=== PATIENT | female | born 1995 | race Caucasian/White ===

== ENCOUNTER → 2020-10-14 09:41 | Outpatient (BNVA) | payer MEDICAID, SELFPAY | PROVIDERS: Visit Provider Obstetrics & Gynecology | DX: O26.899 Other specified pregnancy related conditions, unspecified trimester (principal); Z67.91 Unspecified blood type, Rh negative | CPT/HCPCS: 80307; 84315; 87081; 87086 ==

== ENCOUNTER 2020-10-31 10:59 | Outpatient (CLI) | payer MEDICAID, SELFPAY ==
[2020-10-31 11:15] VITALS: BP 126/79; PULSE 85; TEMP 35.9
[2020-10-31 11:26] VITALS: RESP 16; BMI 25.0
[2020-10-31 12:08] LABS: Bilirubin Urine Neg (Negative); Blood Urine Neg (Negative); Glucose Urine UA 1+ (Normal); Ketones Urine Negative (Negative); Leukocyte Esterase Urine 1+ (Negative); Nitrate Urine Negative (Negative); Protein Urine Neg (Negative); Sulfosalicylic Acid Urine Negative (Negative); Urine Appearance SL Hazy (CLEAR); Urine Color Straw (Yellow); Urobilinogen Urine Norm (Negative); pH Urine 8 (5-7)
[2020-10-31 12:09] LABS: RBC Urine 0-4 /hpf (0-2); Squamous Epithelial Cell Urine 0-4 /hpf (0-5); WBC Urine 15-25 /hpf (0-5)
[2020-10-31 12:12] LABS: Add Urine Culture? Yes; Bacteria Urine 2+ /hpf
--- NOTE | 2020-10-31 12:34 | PC.NURSE ---
Keflex 500 mg TID for 7 days, dispense 21, 0 refills called in to [facility] pharmacy.
== END 2020-10-31 12:36 | disposition home or self-care (01) ==
LOC: OPOB 11:05 → OBGYN 11:05
PROVIDERS: Visit Provider Obstetrics & Gynecology
DX: O26.899 Other specified pregnancy related conditions, unspecified trimester (principal); Z3A.00 Weeks of gestation of pregnancy not specified; M54.5 Low back pain
CPT/HCPCS: 81001; 87086; 99211

== ENCOUNTER 2020-11-02 05:40 | Inpatient (IN) | payer MEDICAID, SELFPAY ==
[2020-11-02] VITALS (70 sets, daily range): BP systolic 93–137; BP diastolic 54–84; PULSE 49–76; RESP 14; TEMP 36.2–36.7; O2SAT 97–100; BMI 25.4
[2020-11-02 06:46] LABS: Basophils # 0.1 10^3/uL (0.0-0.1); Basophils % 0.6 %; Eosinophils # 0.2 10^3/uL (0.0-0.8); Eosinophils % 2.2 %; Hematocrit 36.6 % (37.0-47.0); Hemoglobin 12.2 g/dL (11.5-15.3); Lymphocytes # 1.7 10^3/uL (0.8-4.8); Lymphocytes % 21.5 %; Mean Corpuscular HGB Conc 33.3 g/dL (30.0-36.0); Mean Corpuscular Hemoglobin 31.6 pg (28.0-34.0); Mean Corpuscular Volume 94.8 fL (81-99); Mean Platelet Volume 10.5 fL (7.4-10.4); Monocytes # 0.5 10^3/uL (0.2-0.9); Monocytes % 6.3 %; Neutrophils # 5.51 10^3/uL (1.8-7.7); Neutrophils % 68.5 %; Nucleated Red Blood Cells % 0 %; Platelet Count 220 10^3/cmm (130-400); Red Blood Count 3.86 10^6/uL (4.1-5.3); Red Cell Distribution Width 14.4 % (12.1-15.1); White Blood Count 8.1 10^3/uL (4.0-10.0)
[2020-11-02] MEDS: lactated ringers 1,000 ML 999 ML IV ×2 (07:19→08:26)
--- NOTE | 2020-11-02 09:39 | P.ANESASSM_ITS ---
Pre-Anesthetic Assessment Pre-Anesthetic Assessment: Height/Weight: Height 1.6 m Weight 65.317 kg Pulse Resp BP 66 14 117/76 11/02/20 09:24 11/02/20 06:00 11/02/20 09:24 Preop Diagnosis: labor pain Proposed Procedure: epidural Was Beta Augie taken within 24 hours: N/A Social: Social History: Tobacco Comment: Vape Exam: Pre-Anes Outpt Exam: alert, oriented x 3, clear to auscultation bilaterally and regular rate & rhythm Airway: Submandibular: WNL Cervical ROM: WNL MP: 2 Dentition: Full Additional comments: lip ring Pulmonary: Pulmonary: None reported CV/HEM: CV/HEM: None reported : : UTI (antibiotics started 2/5 WBC with normal rains) Hepatic: Hepatic: None reported GI: GI: GERD (infrequent better with milk) Metabolic: Metabolic: None reported Musc/skel: Musc/skel: None reported Neuropsych: Neuropsych: Anxiety and Depression Anesthetic Plan: ASA status: 2 Anesthesia: Eval. for regional block and Regional (specify below) Risk of > 500 ml blood loss (7ml/kg in children): No Meds/Allergies Current Medications: Current Medications Generic Name Dose Route Start Last Admin Trade Name Freq PRN Reason Stop Dose Admin Lactated Ringer's 1,000 mls @ 999 m ls/hr 11/02/20 07:09 11/02/20 08:26 Lactated Ringers IV 999 mls/hr .Q1H1M PRN Administration See label comment s PFSH Anesthesia PFSH: Medical History No pertinent past medical history Denies diabetes, asthma, hypertension, seizures, DVT/PE PCP: None Surgical History Status post hip surgery 7 weeks old--states that she had some sort of infection and had to have hip surgery on her left side for this. Does not remember any details. Denies any restriction in activity Status post tonsillectomy When she was 7 or 8 years old Family History Grandmother Diabetes maternal Grandfather Heart disease maternal Denies family history of Colon cancer Ovarian cancer Hyperlipidemia Breast cancer Hypertension Uterine cancer Thyroid condition Stroke Female Reproductive History: : 2 Data Anesthesia CBC & Chem 7: 11/02/20 06:18 Other Labs: Laboratory Results - last 48 hr 11/02/20 06:18 WBC 8.1 RBC 3.86 L Hgb 12.2 Hct 36.6 L MCV 94.8 MCH 31.6 MCHC 33.3 RDW 14.4 Plt Count 220 MPV 10.5 H Neut % (Auto) 68.5 Lymph % (Auto) 21.5 Mccormick % (Auto) 6.3 Eos % (Auto) 2.2 Baso % (Auto) 0.6 Neut # (Auto) 5.51 Lymph # (Auto) 1.7 Mccormick # (Auto) 0.5 Eos # (Auto) 0.2 Baso # (Auto) 0.1 Nucleated RBC % (auto) 0 Nucleated RBCs # 0.0 Cardiac Studies: No Data to Display
--- NOTE | 2020-11-02 10:08 | ANES.PROC ---
Anesthesia Procedures Procedure/Date: 11/02/20 epidural Procedure Narrative: epidural complete, bolus given, epidural pump initiated with SURFACE TO AIR WEAPONS OFFICER education given, vitals taken during procedure using OBIX system and satisfactory throughout, patient admits to decrease pain, report of procedure to OB RN Epidural: Time Out Performed: Yes Consents Signed: Procedure Consent Consent: requested by attending/covering physician, from patient, risks and benefits reviewed and patient agrees to proceed Lumbar Level: L3-L4 Epidural position: sitting Epidural procedure: sterile prep of area, 1% lidocaine to numb the area (3 mL), 18 g needle, negative for paresthesia passed, neg for paresthesia, test dose given, 1.5% xylocaine 1:200k epi (5 mL), 0.2% Ropivacaine bolus ml (5 mL), placed PCEA, no systemic response, sterile dressing applied, L.U.D. no apparent complications and 0.2% Ropiavacaine @ mls/hr (13 mL/hr)
--- NOTE | 2020-11-02 10:30 | P.PN_ITS ---
Subjective Subjective: Interval history: Ms. Anderson is a 24 year old 2 para 1001 with an LMP of January 2020 and an EDC of 11/07/2020 by 18 week ultrasound, placing her at 39 2/7 weeks gestation with premature rupture of membranes. Vitals/I&O/Wt Last Vital Signs Pulse 68 11/02/20 10:41 Resp 14 11/02/20 06:00 BP 117/68 11/02/20 10:41 Pulse Ox 98 11/02/20 10:41 11/01/20 11/02/20 11/02/20 22:59 06:59 14:59 Intake Total 1000 / 1000 Balance 1000 / 1000 Weight last 48 hrs Weight 65.317 kg Physical Exam Narrative: EXAM NARRATIVE: GA: Alert and oriented ?3. Lungs: Clear to auscultation bilaterally. Heart: Regular rhythm and rate. Abdomen: Gravid, full the height equals dates, nontender. BRAKE OPERATOR HEAVY DUTY: SVE; dilation: 2-3 cm, effacement: 70%, station: -5, presentation: Vx, membranes: Premature rupture membrane. Extremities: no edema, no cyanosis, no calves pain. heart tracing: Basal rate: 145 bpm, Variability: Moderate, Accelerations: Present, Decelerations: Absent, Contraction: Every 6 minutes. Data : 11/02/20 06:18 A&P Assessment and plan (1) Term : heart tracing category 1. Slow progression of labor. Oxytocin augmentation recommended and started. Anticipate vaginal delivery. Status: Acute (2) Premature rupture of membranes: Patient had rupture membranes at 3 AM this morning. She has been with rupture of membranes 8 hours. Status: Acute Attestations Medical Necessity Statement*: In my professional opinion per admitting diagnosis Coding Level of Care Code Acute Second Baker for Chg Fwd Diagnoses Term Z34.90 Premature rupture of membranes O42.90
[2020-11-02] MEDS: dextrose 5%-lactated ringers 1,000 ML 125 ML IV (10:57)
[2020-11-02] MEDS: oxytocin 30 UNIT/500 ML BAG IV (11:23)
--- NOTE | 2020-11-02 15:31 | PM.DELIVERY ---
Delivery Note: Date of delivery: November 02, 2020 Pre-delivery diagnoses: Term . Premature rupture of membranes. Post-delivery diagnoses: Term delivered. Same as above. Procedure: Spontaneous vaginal delivery Op report anesthesia: Epidural Delivering Physician: Arpit Lorenz MD Estimated blood loss (mL): 300 Findings: Male , weight 3130 g, Apgars 8/9 Pre-Delivery Course: Ms. Anderson is a 24 year old 2 para 1001 with an LMP of January 2020 and an EDC of 11/07/2020 by 18 week ultrasound, placing her at 39 2/7 weeks gestation who has been receiving care from [facility]. Came to labor and delivery with chief complaint of rupture membrane. Denies vaginal bleeding CC: Onset of labor at term. HPI: Received appropriate care. Daily vitamins since start of care. labs have all been normal, including negative for HIV. She was found to negative for Group B Strep from screening at 36 weeks. She has gained approximately 30 to lbs throughout the . She denies a history of HTN during . Glucose tolerance screening for gestational diabetes was negative. She is Rh-. Oxytocin was given for labor augmentation. She progressed to have a spontaneous vaginal delivery. Delivery: The patient was noted to be complete and pushing, so was placed in the dorsal lithotomy position, prepped and draped in the usual sterile fashion for a vaginal delivery. Pt. Noted to have epidural anesthesia. At 1520 the patient delivered a viable at 39+2 weeks male infant weighing 3130 g with scores of 8 and 9 at one and five minutes, respectively. The vertex was delivered spontaneously over an intact perineum. The patient was asked to push and the head delivered spontaneously in the JAQUELINE position, over an intact perineum. A nuchal cord was checked and 1 noted, and relieved around head as necessary. The anterior shoulder delivered easily and the posterior shoulder followed. The remainder of the was easily delivered and the oropharynx and nasopharynx was bulb suctioned. The was noted to have spontaneous cry and spontaneous movement of all four extremities. The cord was clamped x 2 and cut and noted to have 2 arteries and one vein. The infant was passed to the mother's at the where nursing personnel were in attendance. Cord blood sample was then obtained. The placenta delivered intact spontaneously and the uterus was explored. 20 units of Pitocin was placed in the IV bag to firm the uterus. Examination of the cervix and vaginal vault did not reveal any lacerations. A vaginal pack was then placed. Examination of the perineum showed no laceration. The vaginal pack was then removed. The patient tolerated this procedure well, and recovered in L&D with her infant in the OB tracy. All sponge and needle counts were correct. Post-Delivery Status: Hemodynamically stable A&P Assessment and plan (1) Premature rupture of membranes: Status: Acute (2) Term delivered: Status: Acute (3) Rh negative, antepartum: Status: Acute Coding Level of Care Code Acute Sales Project Manager for Chg Fwd Diagnoses Premature rupture of membranes O42.90 Term delivered O80 Rh negative, antepartum O26.899; Z67.91
[2020-11-02] MEDS: lanolin oint 7 gm 1 APPLIC TOPICAL (17:32)
[2020-11-02] MEDS: docusate sodium 100 mg Capsule PO (17:32)
[2020-11-02] MEDS: benzocaine-menthol 78 gm Canister 1 SPRAY TOPICAL (17:32)
[2020-11-02] MEDS: acetaminophen 325 mg Tablet 650 MG PO (18:16)
[2020-11-02] MEDS: ibuprofen 800 mg tablet PO (20:55)
[2020-11-03 01:19] VITALS: BP 115/55; PULSE 70
[2020-11-03 03:33] LABS: Hematocrit 33.2 % (37.0-47.0); Hemoglobin 10.9 g/dL (11.5-15.3); Mean Corpuscular HGB Conc 32.8 g/dL (30.0-36.0); Mean Corpuscular Volume 97.4 fL (81-99); Mean Platelet Volume 10.4 fL (7.4-10.4); Platelet Count 186 10^3/cmm (130-400); Red Blood Count 3.41 10^6/uL (4.1-5.3); Red Cell Distribution Width 14.2 % (12.1-15.1); White Blood Count 8.1 10^3/uL (4.0-10.0)
[2020-11-03 05:08] VITALS: BP 101/53; PULSE 69; TEMP 36.8
[2020-11-03 09:09] VITALS: BP 103/54; PULSE 71
[2020-11-03 09:10] VITALS: PULSE 71; RESP 18; TEMP 36.1
[2020-11-03] MEDS: ibuprofen 800 mg tablet PO ×2 (10:40→17:35)
[2020-11-03] MEDS: prenatal vitamin Capsule 1 CAP PO (10:40)
[2020-11-03] MEDS: docusate sodium 100 mg Capsule PO (10:40)
[2020-11-03] MEDS: ferrous sulfate EC 325 mg Tablet PO (10:41)
--- NOTE | 2020-11-03 16:49 | P.DS_ITS ---
Discharge Providers COMMUNITY REPRESENTATIVE Date of Admission: 11/02/20 05:40 Date of Discharge: 11/03/20 Attending Provider at Admission: Arpit Lorenz MD Attending Provider at Discharge: Arpit Lorenz MD Diagnoses at Discharge Discharge Diagnosis (1) Premature rupture of membranes: Status: Acute (2) Term delivered: Status: Acute (3) Rh negative, antepartum: Status: Acute Reason for Visit Reason for Visit: POSS ROM Hospital Course Hospital Course Ms. Anderson is a 24 year old 2 para 1001 with an LMP of January 2020 and an EDC of 11/07/2020 by 18 week ultrasound, placing her at 39 2/7 weeks gestation who has been receiving care from [facility]. Came to labor and delivery with chief complaint of rupture membrane. Denies vaginal bleeding CC: Onset of labor at term. HPI: Received appropriate care. Daily vitamins since start of care. labs have all been normal, including negative for HIV. She was found to negative for Group B Strep from screening at 36 weeks. She has gained approximately 30 to lbs throughout the . She denies a history of HTN during . Glucose tolerance screening for gestational diabetes was negative. She is Rh-. Oxytocin was given for labor augmentation. She progressed to have a spontaneous vaginal delivery without complications. She delivered a male Apgars 8/9 with a weight of 3130 g. observation has been uneventful. He is afebrile and hemodynamically stable. Tolerating diet well. Ambulating without difficulty. Breast-feeding without difficulty. Information Peripartum Data: Delivery Method: Vaginal Physical Exam Narrative: EXAM NARRATIVE: GA; alert and oriented x 3 HEENT: normal Breasts: engorged Nipples - skin intact Lungs; clear to auscultation Heart: regular rhythm, no murmurs. Abd: Appropriately tender. BS+. Uterine fundus below umbilicus. No Fundal Tenderness. Perineum: normal lochia. Extremities: no edema, no cyanosis, no tenderness. Urinary Catheter Management^: Alcaraz: Cath Placed During This Visit: yes Urinary Catheter Date of Insertion: 11/02/20 Urinary Catheter Time of Insertion: 11:00 Discharge Data Data Completed and Pending: Labs from last 24 hours 11/03/20 11/03/20 11/02/20 03:20 03:20 06:18 WBC 8.1 RBC 3.41 L Hgb 10.9 L Hct 33.2 L MCV 97.4 MCH 32.0 MCHC 32.8 RDW 14.2 Plt Count 186 MPV 10.4 Blood Type O Negative Rho(D) Type Negative Antibody Screen Positive Antibody Identific ation Anti-D Screen Negative Vitals: Last Vital Signs Temp 97.0 F L 11/03/20 09:10 Pulse 71 11/03/20 09:10 Resp 18 11/03/20 09:10 BP 103/54 11/03/20 09:09 Pulse Ox 98 11/02/20 10:41 Discharge Plan Discharge Patient Disposition: Home Condition: Stable Prescriptions: New docusate sodium [Colace] 100 mg capsule 100 mg PO BID Qty: 60 RF: 0 ferrous sulfate 325 mg (65 mg iron) tablet 325 mg PO BID Qty: 60 RF: 0 acetaminophen 325 mg capsule 325 mg PO Q4H PRN (Reason: fever or pain) Qty: 60 RF: 0 ibuprofen 800 mg tablet 800 mg PO TID PRN (Reason: pain) Qty: 60 RF: 0 Continued Flintstones Complete (iron) Tablet,Chewable 2 tab PO DAILY RF: 0 cephalexin 500 mg Tablet 500 mg PO BID RF: 0 Discharge Orders: Discharge Order (Routine); Ordered 11/03/20 Ordered By: Arpit Lorenz Referrals: Arpit Lorenz MD [Physician] - 6 Weeks Discharge Diet: Usual diet Discharge Activity: Increase activity as tolerated Patient Instructions: Iron Supplements (By mouth), Vitamins (By mouth), Lanolin (On the skin), Caring for Your Baby (GEN), Breast Care for the Breast Feeding Mother (GEN), Caring for Your Breastfed Baby (GEN), OB Discharge Report, OB Food/Drug Interaction Guide, OB Care at Home, OB Vaginal Deliveries, Abnormal Bleeding, Depression Activity Restrictions/Additional Instructions: 1. Please call [facility] on next working day to make your appointment in 6 weeks. 2. Please stay home until you come back to the clinic on first post-operative check up. 3. Please follow instructions on your medications CAREFULLY. 4. If you have abdominal incision, do not cover it unless dressing is necessary because of drainage. OK to shower, but avoid bath. Leave steri-strips until they fall off. If they are still on one week after surgery, you may remove them. 5. If you had vaginal surgery, your doctor may instruct you to take SITZ bath. 6. Yellow, blood tinged odorous vaginal discharge is usually normal after hyst erectomy or vaginal surgeries. 7. No sexual intercourse, tampons, or douches until you are completely released from the post-operative care. 8. Avoid constipation by eating right and maybe using some Metamucil or Milk of Magnesia. 9. All prescription refills are given during the working hours. Please do no wait till it runs out. Call the clinic at [phone] before your medication runs out. The clinic will get in touch with your doctor to prescribe medications if necessary. 10. Please remain within 40 mile radius from our hospital because emergencies do happen now and then during the post-operative period. 11. If you have stairs at home, take one step at a time slowly and minimize the number of trips. It helps to stay in one floor for the next few days. No lifting except what you can lift by one hand until you are released from the post-operative care. 12. Driving is discouraged until you are well healed. It may be 3-4 weeks before you feel strong enough to drive. You should be able to turn and look through the rear window without pain and you should be able to push the brake pedal very hard without pain before you drive. No fast rules, but SAFETY should be your primary concern. DO NOT drive if you are on sedating medications such as narcotics. 13. Call the clinic (during working hours) to make urgent appointment or go to the Emergency room, if any of the following occurs: i. Vaginal bleeding becomes heavy, more than a period. ii. Incision becomes red and sore, or drains pus. iii. Your temperature is over 100.4 or you have chill. iv. IV site becomes red and swollen (a little ``knot?? is usually OK) v. Persistent nausea and vomiting vi. Persistent constipation or diarrhea vii. Rash or allergic reaction to medications. Discharge Attestations COMMUNITY REPRESENTATIVE Time Spent in Discharge Care*: greater than 30 min Coding Level of Care Code Acute Wirer Helper for g Fwd Diagnoses Premature rupture of membranes O42.90 Term delivered O80 Rh negative, antepartum O26.899; Z67.91
[2020-11-03 17:44] VITALS: BP 125/73; PULSE 86
[2020-11-03 18:11] VITALS: BP 125/73; PULSE 86
== END 2020-11-03 18:12 | disposition home or self-care (01) | DRG 806 ==
LOC: OPOB 05:50 → OBGYN 05:50
PROVIDERS: Admitting Provider Obstetrics & Gynecology; Visit Provider Obstetrics & Gynecology
DX: O69.2XX0 Labor and delivery complicated by other cord entanglement, with compression, not applicable or unspecified (principal); O36.0930 Maternal care for other rhesus isoimmunization, third trimester, not applicable or unspecified; Z37.0 Single live birth; O42.02 Full-term premature rupture of membranes, onset of labor within 24 hours of rupture; O99.334 Smoking (tobacco) complicating childbirth; F17.290 Nicotine dependence, other tobacco product, uncomplicated; Z3A.39 39 weeks gestation of pregnancy
CPT/HCPCS: 12345; 36415; 51702; 59025; 59409; 80500; 83986; 85025; 85027; 85460; 86850; 86870; 86900; 90384; 90471; 90686; 99211; J2795

== ENCOUNTER 2022-05-11 11:50 | Outpatient (CLI) | payer MEDICAID, SELFPAY ==
--- NOTE | 2022-05-11 12:03 | XR_ITS ---
WS: [id number] Exam: XR hip LT 2-3V wo/w pel* [id number] Date/Time of Exam: 05/11/2022 12:09 PM Reason For Exam: chronic left hip pain Findings: No fractures or bone anomalies are noted. No unusual soft tissue masses or calcifications are seen. The bony elements of the hip are in adequate alignment. XR/XR hip LT 2-3V wo/w pel* [id number] IMPRESSION: Negative left hip. Tonnis classification: 0
== END 2022-05-11 11:51 | disposition home or self-care (01) ==
PROVIDERS: PCP Family Medicine; Visit Provider Family Medicine
DX: M25.552 Pain in left hip (principal); G89.29 Other chronic pain
CPT/HCPCS: 73502